=== PATIENT | female | born 1930 | race Caucasian/White ===

== ENCOUNTER 2016-11-07 21:43 | Emergency (ER) | payer MEDICARE, OTHER ==
[2016-11-07] MEDS ORDERED: LORazepam 2 MG/ML SYRINGE IVP STA (22:23)
[2016-11-07] MEDS ORDERED: LORazepam 2 MG/ML SYRINGE ONE (22:42)
== END 2016-11-07 23:38 | disposition home or self-care (01) ==
DX: R42 Dizziness and giddiness (principal); I10 Essential (primary) hypertension; E87.1 Hypo-osmolality and hyponatremia; R00.0 Tachycardia, unspecified; R09.81 Nasal congestion; R05 Cough; R68.83 Chills (without fever); E11.9 Type 2 diabetes mellitus without complications; Z79.82 Long term (current) use of aspirin
CPT/HCPCS: 36415; 71010; 80053; 81001; 83690; 83735; 84484; 85025; 87077; 87086; 87181; 87275; 87276; 93005; 93010; 96374; 99284; J2060

== ENCOUNTER 2016-11-23 08:00 | Outpatient (CLI) | payer MEDICARE, OTHER | END 2016-11-23 23:59 | DX: N39.0 Urinary tract infection, site not specified (principal) ==

== ENCOUNTER 2016-12-01 10:17 | Outpatient (CLI) | payer MEDICARE, OTHER | END 2016-12-01 10:18 | disposition home or self-care (01) | DX: Z12.31 Encounter for screening mammogram for malignant neoplasm of breast (principal) ==

== ENCOUNTER 2016-12-08 04:07 | Outpatient (CLI) | payer MEDICARE, OTHER | END 2016-12-08 04:08 | disposition critical access hospital (66) | DX: R06.00 Dyspnea, unspecified (principal); M54.5 Low back pain | CPT/HCPCS: A0425; A0429 ==

== ENCOUNTER 2016-12-08 04:21 | Emergency (ER) | payer MEDICARE, OTHER ==
[2016-12-08] MEDS ORDERED: HYDROcod/ACETAM 5/325 MG TABLET PO STA (05:08)
[2016-12-08] MEDS ORDERED: ONDANSETRON ODT 4 MG TABLET TL STA (05:08)
[2016-12-08] MEDS ORDERED: ONDANSETRON ODT 4 MG TABLET ONE (05:11)
[2016-12-08] MEDS ORDERED: HYDROcod/ACETAM 5/325 MG TABLET ONE (05:11)
[2016-12-08] MEDS ORDERED: ACETAMINOPHEN 325 MG TABLET PO STA (05:57)
[2016-12-08] MEDS ORDERED: ACETAMINOPHEN 325 MG TABLET PO ONE (06:01)
== END 2016-12-08 07:20 | disposition home or self-care (01) ==
DX: R10.9 Unspecified abdominal pain (principal); R25.9 Unspecified abnormal involuntary movements; N20.1 Calculus of ureter; J06.9 Acute upper respiratory infection, unspecified; K21.9 Gastro-esophageal reflux disease without esophagitis; I10 Essential (primary) hypertension; E78.00 Pure hypercholesterolemia, unspecified; E11.9 Type 2 diabetes mellitus without complications; Z79.82 Long term (current) use of aspirin
CPT/HCPCS: 36415; 74176; 80053; 81001; 83690; 84484; 85025; 87077; 87086; 87181; 93005; 93010; 99284; A9270; Q0162

== ENCOUNTER 2017-04-07 10:00 | Outpatient (CLI) | payer MEDICARE, OTHER ==
[2017-04-07 13:17] LABS: CALCIUM 9.2 mg/dL (8.5-10.3); CREATININE 1.6 mg/dL (0.4-1.0); POTASSIUM 4.3 mmol/L (3.5-5.0)
[2017-04-07 13:28] LABS: HEMOGLOBIN A1C 0.54 g/dL
== END 2017-04-07 10:01 | disposition home or self-care (01) ==
LOC: LAB.WCP 10:00
PROVIDERS: ATTEND Physician Assistant Medical
DX: E11.9 Type 2 diabetes mellitus without complications (principal)
CPT/HCPCS: 36415; 80048; 83036

== ENCOUNTER 2017-10-26 10:39 | Outpatient (CLI) | payer MEDICARE, OTHER ==
[2017-10-26 18:36] LABS: BASOPHILS % (AUTO) 0.3 %; EOSINOPHILS # (AUTO) 0.2 10^3/uL (0.0-0.7); EOSINOPHILS % (AUTO) 3.6 %; HGB - HEMOGLOBIN 11.8 g/dL (12.0-16.0); LYMPHOCYTES # (AUTO) 2.2 10^3/uL (1.5-3.5); LYMPHOCYTES % (AUTO) 45.7 %; MEAN CORPUSCULAR HEMOGLOBIN 31.4 pg (27.0-31.0); MEAN CORPUSCULAR HGB CONC 32.8 g/dL (32.0-36.0); MEAN CORPUSCULAR VOLUME 95.8 fL (81.0-99.0); MEAN PLATELET VOLUME 7.9 fL (7.9-10.8); MONOCYTES # (AUTO) 0.3 10^3/uL (0.0-1.0); MONOCYTES % (AUTO) 5.5 %; NEUTROPHILS # (AUTO) 2.1 10^3/uL (1.5-6.6); NEUTROPHILS % (AUTO) 44.9 %; PLT - PLATELET COUNT 213 10^3/uL (130-450); RED BLOOD COUNT 3.75 10^6/uL (4.20-5.40); RED CELL DISTRIBUTION WIDTH 12.9 % (12.0-15.0); WHITE BLOOD COUNT 4.8 x10^3/uL (4.8-10.8)
[2017-10-26 18:54] LABS: ALBUMIN 4.4 g/dL (3.2-5.5); ALBUMIN/GLOBULIN RATIO 1.4 (1.0-2.2); ALKALINE PHOSPHATASE 63 IU/L (42-121); ALT ALANINE AMINOTRANSFERASE 16 IU/L (10-60); AST ASPARTATE AMINOTRANSFERASE 24 IU/L (10-42); BUN - BLOOD UREA NITROGEN 23 mg/dL (6-20); CARBON DIOXIDE - CO2 26 mmol/L (21-32); CHLORIDE 105 mmol/L (101-111); CHOL/HDL RATIO 3.2 (<4.4); CHOLESTEROL 183 mg/dL; CREATININE 1.4 mg/dL (0.4-1.0); GFR - MDRD 35 (>89); GLUCOSE 114 mg/dL (70-100); HDL CHOLESTEROL 57 mg/dL; LDL CHOLESTEROL,CALCULATED 94 mg/dL; LDL/HDL RATIO 1.6 (<4.4); SODIUM 140 mmol/L (135-145); TOTAL PROTEIN 7.5 g/dL (6.7-8.2); VLDL CHOLESTEROL 32 mg/dL
[2017-10-26 19:05] LABS: HB2 TOTAL 12.9 g/dL; HEMOGLOBIN A1C 0.55 g/dL; HEMOGLOBIN A1C % 6.1 % (4.6-6.2)
== END 2017-10-26 10:40 | disposition home or self-care (01) ==
LOC: LAB.WCP 10:39
PROVIDERS: ATTEND Physician Assistant Medical
DX: E11.9 Type 2 diabetes mellitus without complications (principal); D64.9 Anemia, unspecified
CPT/HCPCS: 36415; 80053; 80061; 82043; 83036; 83721; 85025

== ENCOUNTER 2017-12-04 09:51 | Outpatient (CLI) | payer MEDICARE, OTHER ==
--- NOTE | 2017-12-05 17:15 | Mammography Report ---
DIGITAL SCREENING MAMMOGRAM: 12/04/2017 CLINICAL INDICATION: An 87-year-old with history of benign biopsy for screening. COMPARISON: 11/2016, 11/2014, 11/2013, 11/2012, 11/2011, 11/2010, 09/2009. TECHNIQUE: Routine CC and MLO projections were obtained of the breasts. FINDINGS: Scattered fibroglandular tissue is present within the breasts. There are no dominant masses, suspicious microcalcifications, or secondary signs of malignancy. In comparison to the previous studies, there are no significant changes. ASSESSMENT: NO MAMMOGRAPHIC EVIDENCE OF MALIGNANCY. NO SIGNIFICANT INTERVAL CHANGES. RECOMMENDATION: Screening mammography is recommended annually. BIRADS category 1 - negative. STANDARD QUALIFYING STATEMENTS: 1. This examination was reviewed with the aid of Computed-Aided Detection (CAD). 2. A negative or benign imaging report should not delay biopsy if clinically suspicious findings are present. Consider surgical consultation if warranted. More than 5% of cancers are not identified by imaging. 3. Dense breasts may obscure an underlying neoplasm. TD: 12/05/2017 17:14
== END 2017-12-04 09:52 | disposition home or self-care (01) ==
LOC: DI 09:51
PROVIDERS: ATTEND Physician Assistant Medical
DX: Z12.31 Encounter for screening mammogram for malignant neoplasm of breast (principal)
CPT/HCPCS: 77067

== ENCOUNTER 2018-06-11 10:59 | Outpatient (CLI) | payer MEDICARE, OTHER ==
[2018-06-11 19:16] LABS: ALBUMIN 4.4 g/dL (3.2-5.5); ALBUMIN/GLOBULIN RATIO 1.3 (1.0-2.2); BILIRUBIN,TOTAL 0.9 mg/dL (0.2-1.0); CALCIUM 9.8 mg/dL (8.5-10.3); CREATININE 1.6 mg/dL (0.4-1.0); HB2 TOTAL 12.3 g/dL; HEMOGLOBIN A1C 0.51 g/dL; HEMOGLOBIN A1C % 5.9 % (4.6-6.2); TOTAL PROTEIN 7.8 g/dL (6.7-8.2)
== END 2018-06-11 11:00 | disposition home or self-care (01) ==
LOC: LAB.WCP 10:59
PROVIDERS: ATTEND Physician Assistant Medical
DX: E11.9 Type 2 diabetes mellitus without complications (principal)
CPT/HCPCS: 36415; 80053; 83036

== ENCOUNTER 2018-12-23 16:44 | Emergency (ER) | payer MEDICARE, OTHER ==
[2018-12-23 16:52] VITALS: BP 189/90
--- NOTE | 2018-12-23 17:41 | ED Physician Documentation ---
PD HPI UPPER EXT INJURY - Stated complaint Stated Complaint: RING FINGER BRUISING - Chief complaint Chief Complaint: Trauma Ext - History obtained from History obtained from: Patient - History of Present Illness Location: Left, Finger (ring) Type of injury: Blunt / blow Where injury occurred: Home Timing - onset: Yesterday Timing - duration: Days (1) Timing - details: Abrupt onset, Still present Improved by: Rest Worsened by: Moving Associated symptoms: Swelling, Discolored. No: Weakness, Numbness, Tingling Contributing factors: No: Anticoagulated Similar symptoms before: Has not had sx before Recently seen: Not recently seen - Additonal information Additional information: 88-year-old female was gardening with her daughter and she struck her hand against something and has developed some bruising to the dorsum of the left ring finger. She does not have particularly much in the way of pain with this she does have a ring on that finger the daughter is concerned about circulation and the patient's diabetes. She is on an aspirin a day she does not take any warfarin or Coumadin. Review of Systems Constitutional: denies: Fever Respiratory: denies: Cough GI: denies: Vomiting Skin: denies: Rash Musculoskeletal: reports: Extremity swelling. denies: Neck pain, Back pain, Extremity pain, Joint pain Neurologic: denies: Generalized weakness, Focal weakness, Numbness PD PAST MEDICAL HISTORY - Past Medical History Cardiovascular: Hypertension, High cholesterol, Murmur Respiratory: None Endocrine/Autoimmune: Type 2 diabetes GI: GERD, Other DIRECTOR BROADCAST: None : Incontinence, Renal insuffiency HEENT: None Psych: None Musculoskeletal: Osteoarthritis Derm: None - Past Surgical History Past Surgical History: Yes - Present Medications Home Medications: Ambulatory Orders Medication Instructions Recorded Confirmed Cholecalciferol [Vitamin D3] 1,800 unit PO DAILY 06/27/14 12/08/16 Hydrochlorothiazide 25 mg PO DAILY 06/27/14 12/08/16 Loratadine [Claritin] 10 mg PO DAILY 06/27/14 12/08/16 Omeprazole 20 mg PO BID 06/27/14 12/08/16 Potassium Chloride [K-Dur] 20 meq PO DAILY 06/27/14 12/08/16 Simvastatin [Zocor] 20 mg PO QPM 06/27/14 12/08/16 raNITIdine [Zantac] 300 mg PO QPM 06/27/14 12/08/16 Aspirin [Aspirin EC] 162 mg PO DAILY 06/25/16 12/08/16 Ferrous Sulfate 324 mg PO DAILY 06/25/16 12/08/16 Calcium Carbonate/Vitamin D3 1 tab PO DAILY 06/26/16 12/08/16 [Calcium 500-Vit D3 200 Tablet] Cinnamon Bark [Cinnamon] 500 mg PO DAILY 06/26/16 12/08/16 [place]-3 Fatty Acids [Fish Oil] 300 mg PO DAILY 06/26/16 12/08/16 amLODIPine [Norvasc] 5 mg PO DAILY 06/26/16 12/08/16 Albuterol 2.5 mg INH RTQ4H PRN #120 neb 06/27/16 12/08/16 HYDROcod/ACETAM 5/325 [[place] 5/325] 1 tab PO Q4HR PRN #60 tablet 06/27/1611/11 Methocarbamol [Robaxin] 500 mg PO Q6HR PRN #60 tablet 06/27/16 12/08/16 Hydrocodone/Acetaminophen [[place] 1 each PO Q6H PRN #20 tablet 12/08/16 5-325 Tablet] Ondansetron HCl [Zofran] 4 mg PO Q6H PRN #20 tablet 12/08/16 Promethazine [Phenergan] 25 mg PO Q6HR PRN 12/08/16 12/08/16 - Allergies Allergies/Adverse Reactions: Allergies Allergy/AdvReac Type Severity Reaction Status Date / Time naproxen Allergy Rash Verified 12/23/18 16:53 sulfamethoxazole Allergy Rash Verified 12/23/18 16:53 [From Septra] tolterodine tartrate * Allergy Rash Verified 12/23/18 16:53 [From Detrol] tramadol Allergy Rash Verified 12/23/18 16:53 trimethoprim [From Septra] Allergy Rash Verified 12/23/18 16:53 - Social History Does the pt smoke?: No Smoking Status: Never smoker Does the pt drink ETOH?: No Does the pt have substance abuse?: No - Immunizations Immunizations are current?: Yes - POLST Patient has POLST: No PD ED PE NORMAL - Vitals Vital signs reviewed: Yes (tachy and hypertensive ) - General General: Alert and oriented X 3, No acute distress, Well developed/nourished - HEENT HEENT: Atraumatic, PERRL - Respiratory Respiratory: No respiratory distress - Derm Derm: Normal color, Warm and dry, No rash - Extremities Extremities: No deformity, Other (There is ecchymosis to the dorsum of the left ring finger extending from the hand to the distal phlange. There is full ROM to all joints and the distal n/v is intact and not compromised. ) - Neuro Neuro: Alert and oriented X 3, advisory intern 2-12 intact, No motor deficit, No sensory deficit, Normal speech Eye Opening: Spontaneous Motor: Obeys Commands Verbal: Oriented GCS Score: 15 - Psych Psych: Normal mood, Normal affect Results - Vitals Vitals: Vital Signs - 24 hr 12/23/18 16:47 Temperature 36.5 C Heart Rate 106 H Respiratory 20 Rate Blood Pressure 189/90 H O2 Saturation 98 Oxygen O2 Source Room air PD MEDICAL DECISION MAKING - ED course Complexity details: considered differential, d/w patient, d/w family ED course: 88-year-old female with a contusion to the left ring finger has some ecchymosis and bruising to the area there is minimal swelling she does have a ring on that finger and this is with circumferential wrapping with umbilical tape multiple times and the patient is then able to remove the ring. Departure - Departure Disposition: 01 Home, Self Care Clinical Impression: Contusion of left ring finger Qualifiers: Encounter type: initial encounter Damage to nail status: without damage Qualified Code(s): S60.042A - Contusion of left ring finger without damage to nail, initial encounter Condition: Stable Instructions: ED Sprain Finger Follow-Up: Oriana Corral PA-C [Primary Care Provider] -
== END 2018-12-23 18:25 | disposition home or self-care (01) ==
LOC: ED 16:44
DX: S60.042A Contusion of left ring finger without damage to nail, initial encounter (principal); W22.09XA Striking against other stationary object, initial encounter; Y93.H2 Activity, gardening and landscaping; Y92.009 Unspecified place in unspecified non-institutional (private) residence as the place of occurrence of the external cause; I10 Essential (primary) hypertension; E11.9 Type 2 diabetes mellitus without complications; Z79.82 Long term (current) use of aspirin
CPT/HCPCS: 99282; 99283

== ENCOUNTER 2019-01-22 08:00 | Outpatient (CLI) | payer MEDICARE, OTHER ==
[2019-01-22 12:56] LABS: BASOPHILS % (AUTO) 0.3 %; EOSINOPHILS # (AUTO) 0.2 10^3/uL (0.0-0.7); EOSINOPHILS % (AUTO) 4.6 %; LYMPHOCYTES # (AUTO) 1.8 10^3/uL (1.5-3.5); LYMPHOCYTES % (AUTO) 42.8 %; MEAN CORPUSCULAR HEMOGLOBIN 32.5 pg (27.0-31.0); MEAN CORPUSCULAR HGB CONC 33.3 g/dL (32.0-36.0); MEAN CORPUSCULAR VOLUME 97.6 fL (81.0-99.0); MONOCYTES # (AUTO) 0.2 10^3/uL (0.0-1.0); MONOCYTES % (AUTO) 5.1 %; NEUTROPHILS % (AUTO) 47.2 %; PLT - PLATELET COUNT 201 10^3/uL (130-450); RED BLOOD COUNT 3.71 10^6/uL (4.20-5.40); RED CELL DISTRIBUTION WIDTH 12.1 % (12.0-15.0); WHITE BLOOD COUNT 4.2 x10^3/uL (4.8-10.8)
[2019-01-22 13:34] LABS: HB2 TOTAL 12.7 g/dL; HEMOGLOBIN A1C 0.53 g/dL
[2019-01-22 13:40] LABS: ALBUMIN 4.1 g/dL (3.2-5.5); ALBUMIN/GLOBULIN RATIO 1.4 (1.0-2.2); ALKALINE PHOSPHATASE 84 IU/L (42-121); ALT ALANINE AMINOTRANSFERASE 19 IU/L (10-60); AST ASPARTATE AMINOTRANSFERASE 27 IU/L (10-42); BILIRUBIN,TOTAL 0.8 mg/dL (0.2-1.0); BUN - BLOOD UREA NITROGEN 32 mg/dL (6-20); CALCIUM 9.7 mg/dL (8.5-10.3); CARBON DIOXIDE - CO2 27 mmol/L (21-32); CHLORIDE 105 mmol/L (101-111); CHOL/HDL RATIO 3.2 (<4.4); CHOLESTEROL 170 mg/dL; CREATININE 1.5 mg/dL (0.4-1.0); GFR - MDRD 33 (>89); GLUCOSE 132 mg/dL (70-100); HDL CHOLESTEROL 53 mg/dL; LDL CHOLESTEROL,CALCULATED 80 mg/dL; LDL/HDL RATIO 1.5 (<4.4); SODIUM 140 mmol/L (135-145); TOTAL PROTEIN 7.1 g/dL (6.7-8.2); VLDL CHOLESTEROL 37 mg/dL
== END 2019-01-22 08:01 | disposition home or self-care (01) ==
LOC: LAB.WCP 08:00
PROVIDERS: ATTEND Physician Assistant Medical
DX: E11.9 Type 2 diabetes mellitus without complications (principal); D64.9 Anemia, unspecified
CPT/HCPCS: 36415; 80053; 80061; 83036; 83721; 85025

== ENCOUNTER 2019-03-07 14:43 | Outpatient (CLI) | payer MEDICARE, OTHER ==
--- NOTE | 2019-03-08 10:30 | Mammography Report ---
Reason: ANNUAL SCREENING Procedure Date: 03/07/2019 Accession Number: [id number] / [id number] Procedure: [facility] - Screening Mammo Dig Bilat CPT Code: FULL RESULT: EXAM: Screening Mammo Dig Bilat DATE: 03/07/2019 3:26 PM CLINICAL HISTORY: Screening encounter. No reported risk factors. TECHNIQUE: (B) - Bilateral CC and MLO views were obtained. A right laterally exaggerated CC views obtained. COMPARISON: 12/04/2017 through 11/19/2013. PARENCHYMAL PATTERN: (A) - The breast(s) demonstrate(s) scattered fibroglandular densities. FINDINGS: There are typically benign vascular calcifications. There are no suspicious masses, calcifications, or areas of distortion. IMPRESSION: Benign findings. BI-RADS category 2. RECOMMENDATION: (ANNUAL) - Recommend routine annual screening mammography. BI-RADS CATEGORY: (2) - Benign Findings. STANDARD QUALIFYING STATEMENTS: 1. This examination was not reviewed with the aid of Computer-Aided Detection (CAD). 2. A negative or benign imaging report should not preclude biopsy if clinically suspicious findings are present. 3. Dense breasts may obscure an underlying neoplasm. 4. This examination was reviewed without the aid of 3D breast imaging (tomosynthesis).
== END 2019-03-07 14:44 | disposition home or self-care (01) ==
LOC: DI 14:43
DX: Z12.31 Encounter for screening mammogram for malignant neoplasm of breast (principal)
CPT/HCPCS: 77067